=== PATIENT | male | born 1940 | race Caucasian/White ===

== ENCOUNTER 2021-12-31 12:38 | Emergency (ER) | payer OTHER ==
--- NOTE | 2021-12-31 12:57 | NUR ---
STATUS RAVI GEEPIPE WRAPPING MACHINE OPERATOR AND LORIE RN WENT TO ASSIST PATIENT IN TO W/C AND TO BRING PATIENT BACK TO ED8, FAMILY DEMANDING INSISTING PATIENT BE PUT ON AN AMBULANCE AND SENT TO [facility], RAVI SPOKE WITH FAMILY ABOUT THE TRANSFER PROCESS AND THAT THE ED DOCTOR NEEDED TO EVALUATE PATIENT AND GET ACCEPTANCE FROM TRANFERRING FACILITY FIRST, FAMILY DOES NOT WANT ANYTHING DONE HERE EXCEPT OXYGEN AND TRANFER. AGAIN RAVI GEEPIPE WRAPPING MACHINE OPERATOR SPOKE TO THEM ABOUT THE TRANFER PROCEDURE AND FAMILY CHOSE TO TAKE PATIENT STRAIGHT TO [facility]. PER STAFF PATIENT WAS SITTING COMFORTABLY IN FRONT SEAT OF CAR WITH OXYGEN ON.
== END 2021-12-31 12:57 | disposition left against medical advice (07) ==
LOC: ER 12:38
DX: Z00.00 Encounter for general adult medical examination without abnormal findings (principal); Z53.21 Procedure and treatment not carried out due to patient leaving prior to being seen by health care provider